=== PATIENT | male | born 1985 | race African-American/Black ===

== ENCOUNTER 2019-04-05 00:25 | Emergency (ER) | payer MEDICARE ==
[~2019-04-05] VITALS: Ht 157.5 cm; Wt 107.0 kg
[2019-04-05] MEDS ORDERED: KETOROLAC 60MG/2ML VIAL IM ONE (07:15)
[2019-04-05 08:40] VITALS: BP 105/60
== END 2019-04-05 11:12 | disposition home or self-care (01) ==
LOC: ER 00:25
DX: M79.671 Pain in right foot (principal); M25.561 Pain in right knee; G89.29 Other chronic pain; M54.5 Low back pain
CPT/HCPCS: 73630; 96372; 99283; J1885; Z7610

== ENCOUNTER 2019-04-05 11:01 | Emergency (ER) | payer MEDICARE ==
[~2019-04-05] VITALS: Ht 177.8 cm; Wt 104.0 kg
[2019-04-05 17:25] LABS: CHLORIDE 104 mEq/L (98-107)
[2019-04-05 17:28] LABS: BASOPHILS % 0.7 % (0.0-2.0); EOSINOPHILS % 1.5 % (0.0-5.0); HEMATOCRIT. 47.4 % (42.0-52.0); LYMPHOCYTES % 50.5 % (20.0-50.0); MEAN CORPUSCULAR HEMOGLOBIN 33.3 pg (28.0-32.0); MEAN CORPUSCULAR VOLUME 98.5 fL (80.0-94.0); MEAN PLATELET VOLUME 6.9 fl (7.4-10.4); MONOCYTES % 8.8 % (2.0-8.0); NEUTROPHILS % 38.5 % (40.0-76.0); PLATELET 342 x1000/uL (130-400); RED BLOOD CELL COUNT 4.81 mill/uL (4.7-6.1)
[2019-04-05 17:29] LABS: ETHANOL BLOOD < 10 mg/dL
[2019-04-05 18:32] LABS: CLARITY URINE CLEAR (CLEAR); COLOR URINE YELLOW (YELLOW); KETONES URINE NEGATIVE (NEGATIVE); LEUKOCYTE ESTERASE URINE NEGATIVE (NEGATIVE); NITRITE URINE NEGATIVE (NEGATIVE); OCCULT BLOOD URINE NEGATIVE (NEGATIVE); PROTEIN URINE NEGATIVE (NEGATIVE)
[2019-04-05 18:42] LABS: *AMPHETAMINES SCREEN URINE NEGATIVE (NEGATIVE); *BARBITURATES SCREEN URINE NEGATIVE (NEGATIVE); *BENZODIAZEPINES SCREEN URINE NEGATIVE (NEGATIVE); *COCAINE SCREEN URINE NEGATIVE (NEGATIVE)
[2019-04-05 18:43] LABS: CANNABINOID URINE SCREEN NEGATIVE (NEGATIVE); METHADONE URINE SCREEN NEGATIVE (NEGATIVE); OPIATES URINE SCREEN NEGATIVE (NEGATIVE); PHENCYCLIDINE URINE SCREEN NEGATIVE (NEGATIVE)
[2019-04-07 20:25] VITALS: BP 121/69
== END 2019-04-07 20:56 | disposition home or self-care (01) ==
LOC: ER 11:01
DX: F32.89 Other specified depressive episodes (principal); R45.851 Suicidal ideations; F22 Delusional disorders
CPT/HCPCS: 36415; 80305; 80320; 93005; 99285; G0480

== ENCOUNTER 2020-07-18 08:15 | Inpatient (IN) | payer MEDICARE ==
[~2020-07-18] VITALS: Ht 177.8 cm; Wt 98.0 kg
[2020-07-18] MEDS ORDERED: DEXTROSE 50% WATER 50ML SYRINGE IV ONE ×4 (08:59→10:45)
[2020-07-18] MEDS ORDERED: SODIUM CHLORIDE 0.9% 1,000 ML IV ONE (09:33)
[2020-07-18 09:53] LABS: BASOPHILS % 0.8 % (0.0-2.0); HEMATOCRIT. 39.5 % (42.0-52.0); HEMOGLOBIN. 13.4 g/dL (14.0-18.0); LYMPHOCYTES % 31.4 % (20.0-50.0); MEAN CORPUSCULAR HEMOGLOBIN 33.9 pg (28.0-32.0); MEAN CORPUSCULAR VOLUME 99.8 fL (80.0-94.0); MEAN PLATELET VOLUME 8.3 fl (7.4-10.4); MONOCYTES % 11.8 % (2.0-8.0); PLATELET 375 x1000/uL (130-400); RED BLOOD CELL COUNT 3.96 mill/uL (4.7-6.1); RED CELL DISTRIBUTION WIDTH 15.2 % (11.6-14.6)
[2020-07-18 10:18] LABS: CHLORIDE 108 mEq/L (98-107)
[2020-07-18 10:23] LABS: ETHANOL BLOOD 44 mg/dL
[2020-07-18 10:24] LABS: PROTHROMBIN TIME 10.2 sec (9.6-11.0)
[2020-07-18] MEDS ORDERED: DEXT 10% WATER 1,000 ML IV ONE (10:38)
[2020-07-18 11:13] LABS: CLARITY URINE CLEAR (CLEAR); COLOR URINE YELLOW (YELLOW); KETONES URINE NEGATIVE (NEGATIVE); LEUKOCYTE ESTERASE URINE NEGATIVE (NEGATIVE); NITRITE URINE NEGATIVE (NEGATIVE); OCCULT BLOOD URINE TRACE (NEGATIVE); PROTEIN URINE NEGATIVE (NEGATIVE); SPECIFIC GRAVITY URINE 1.021 (1.005-1.030); UROBILINOGEN URINE 0.2 E.U./dL (0.2-1.0)
[2020-07-18 11:33] LABS: *AMPHETAMINES SCREEN URINE PRESUMTIVE POSITIVE (NEGATIVE); *BARBITURATES SCREEN URINE NEGATIVE (NEGATIVE); *BENZODIAZEPINES SCREEN URINE NEGATIVE (NEGATIVE); *COCAINE SCREEN URINE NEGATIVE (NEGATIVE); METHADONE URINE SCREEN NEGATIVE (NEGATIVE); OPIATES URINE SCREEN NEGATIVE (NEGATIVE); PHENCYCLIDINE URINE SCREEN PRESUMTIVE POSITIVE (NEGATIVE)
[2020-07-18 11:34] LABS: CANNABINOID URINE SCREEN PRESUMTIVE POSITIVE (NEGATIVE)
[2020-07-18] MEDS ORDERED: ACETAMINOPHEN 325MG TABLET PO PRN (12:00)
[2020-07-18] MEDS: BLOOD SUGAR DIAGNOSTIC STRIP TEST SCH ×3 (12:00→20:00)
[2020-07-18] MEDS ORDERED: ONDANSETRON HCL 4MG/2ML INJ IV PRN (12:00)
[2020-07-18 13:00] VITALS: BP_SYST 138; BP_SYST 142; BP_DIAS 88
[2020-07-18 14:00] VITALS: BP 141/74
[2020-07-18] MEDS ORDERED: LABETALOL 5MG/ML SYR 20 MG/4 ML SYRINGE IV SCH (15:00)
[2020-07-18] MEDS ORDERED: CLONIDINE 0.1MG TABLET PO PRN (15:00)
[2020-07-18] MEDS ORDERED: AMLODIPINE 10MG TABLET PO SCH (15:00)
[2020-07-18 16:00] VITALS: BP 140/74
[2020-07-18 18:00] VITALS: BP 147/42
[2020-07-19] MEDS: BLOOD SUGAR DIAGNOSTIC STRIP TEST SCH ×3 (04:00→08:00)
[2020-07-19 08:00] VITALS: BP 124/89
== END 2020-07-19 09:50 | disposition left against medical advice (07) | DRG 52 ==
LOC: ER 08:26 → 3WST 11:44 → EDBEDREQ 11:48 → EDBEDREQSVC 11:48 → EDBEDREQTM 11:48 → ENRESERV 12:00
PROVIDERS: ADMIT Internal Medicine; ATTEND Internal Medicine
DX: G92 Toxic encephalopathy (principal); D64.9 Anemia, unspecified; E16.2 Hypoglycemia, unspecified; E87.8 Other disorders of electrolyte and fluid balance, not elsewhere classified; F10.129 Alcohol abuse with intoxication, unspecified; F32.9 Major depressive disorder, single episode, unspecified; Z53.29 Procedure and treatment not carried out because of patient's decision for other reasons; I10 Essential (primary) hypertension; Y90.2 Blood alcohol level of 40-59 mg/100 ml; F12.10 Cannabis abuse, uncomplicated; F15.10 Other stimulant abuse, uncomplicated; F16.10 Hallucinogen abuse, uncomplicated; Z71.51 Drug abuse counseling and surveillance of drug abuser
CPT/HCPCS: 36415; 71045; 80053; 80305; 80307; 80320; 80329; 81003; 82962; 84484; 85025; 93005; 99291; J3490; J7030; G0480